=== PATIENT | female | born 1960 | race Caucasian/White ===

== ENCOUNTER 2021-03-02 15:51 | Outpatient (CLI) | payer MEDICARE, OTHER | END 2021-03-02 15:52 | disposition home or self-care (01) | LOC: MADCT 15:51 | PROVIDERS: ATTEND Family Medicine | DX: R31.0 Gross hematuria (principal); R10.9 Unspecified abdominal pain; R59.0 Localized enlarged lymph nodes | CPT/HCPCS: 74176 ==